=== PATIENT | female | born 1990 | race African-American/Black ===

== ENCOUNTER 2018-09-15 08:40 | Inpatient (IN) | payer MEDICAID ==
[~2018-09-15] VITALS: Ht 175.3 cm; Wt 104.5 kg
[~2018-09-15 08:40] MED LIST: BACDS PO; CEPH500C2 PO; CEPH500C5 PO; ONDA8TAB6 PO
[2018-09-15] MEDS ORDERED: CefTRIAXone 2gm/D5W 50ml 50 ML IV ONE (08:55)
[2018-09-15] MEDS ORDERED: normal saline 1000ML IV soln IV ONE (08:55)
[2018-09-15] MEDS ORDERED: ondansetron/PF 4mg/2ml inj IV ONE (08:55)
[2018-09-15] MEDS ORDERED: morphine 4 MG/ML inj SYRINge IV PRN (08:55)
[2018-09-15] MEDS ORDERED: iohexol 300mg/ml 100ml inj. ONE (09:15)
[2018-09-15 09:29] LABS: BASOPHILS # (AUTO) 0.1 X10'3 (0-0.2); BASOPHILS % (AUTO) 0.4 % (0-1); EOSINOPHILS # (AUTO) 0.2 X10'3 (0-0.9); EOSINOPHILS % (AUTO) 1.3 % (0-6); HEMATOCRIT 41.8 % (35.0-45.0); HEMOGLOBIN 13.6 g/dl (12.0-16.0); LYMPHOCYTES # (AUTO) 1.3 X10'3 (1.1-4.8); LYMPHOCYTES % (AUTO) 8.5 % (21-51); MEAN CORPUSCULAR HEMOGLOBIN 28.3 PG (27.0-31.0); MEAN CORPUSCULAR HGB CONC 32.5 g/dL (33.0-36.5); MEAN CORPUSCULAR VOLUME 87.2 FL (78-98); MEAN PLATELET VOLUME 8.7 FL (7.4-10.4); MONOCYTES # (AUTO) 1.7 X10'3 (0-0.9); NEUTROPHILS # (AUTO) 11.9 X10'3 (1.8-7.7); NEUTROPHILS % (AUTO) 78.8 % (42-75); PLATELET COUNT 258 X10'3 (140-440); RED BLOOD COUNT 4.79 X10'6 (4.20-5.60); RED CELL DISTRIBUTION WIDTH 13.3 % (11.5-14.5)
[2018-09-15] MEDS ORDERED: ketorolac trometh. 30mg/ml inj. IV ONE (09:40)
[2018-09-15 09:55] LABS: ALANINE AMINOTRANSFERASE 46 U/L (12-78); ALBUMIN 3.1 G/DL (3.4-5.0); ALBUMIN/GLOBULIN RATIO 0.6 (1.1-1.5); ALKALINE PHOSPHATASE 93 IU/L (46-116); ANION GAP 11 (8-16); ASPARTATE AMINO TRANSFERASE 24 U/L (10-37); BILIRUBIN,TOTAL 0.5 MG/DL (0.1-1.0); BLOOD UREA NITROGEN 11 MG/DL (7-18); BUN/CREATININE RATIO 12.6 (6.6-38.0); CALCIUM 8.6 MG/DL (8.5-10.1); CHLORIDE 99 MMOL/L (99-107); CREATININE 0.87 MG/DL (0.40-0.90); GLUCOSE 99 MG/DL (70-104); POTASSIUM 3.1 MMOL/L (3.5-5.1); SODIUM 135 MMOL/L (135-145); TOTAL CARBON DIOXIDE 24.6 MMOL/L (24-32); TOTAL PROTEIN 7.9 G/DL (6.4-8.2); eGFR > 90 ML/MIN
[2018-09-15] MEDS ORDERED: vancomycin/NS 1 GM ADD-VANTAGE 250 ML IV ONE (10:45)
[2018-09-15] MEDS ORDERED: acetaminophen 325mg tablet PO PRN (11:20)
[2018-09-15] MEDS ORDERED: HYDROcodone/acetaminophen 5mg/325mg tablet PO PRN (11:20)
[2018-09-15] MEDS ORDERED: magnesium hydroxide 30ml (MOM) UD suspension PO PRN (11:20)
[2018-09-15] MEDS ORDERED: mag hydrox/Alum hydrox/simeth 30ml oral suspension PO PRN (11:20)
[2018-09-15] MEDS ORDERED: morphine 2 MG/ML inj. syringe IV PRN (11:20)
[2018-09-15] MEDS ORDERED: ondansetron/PF 4mg/2ml inj IV PRN (11:20)
[2018-09-15] MEDS ORDERED: NAPR-996 PO (12:33)
[2018-09-15] MEDS: normal saline 1000ml 1,000 ML IV SCH (12:42)
[2018-09-15 12:46] VITALS: BP 115/79
[2018-09-15] MEDS: clindamycin 600mg/D5W 50ml 50 ML IV SCH ×2 (13:45→20:07)
[2018-09-15] MEDS ORDERED: naproxen 500mg tablet PO PRN (14:55)
[2018-09-15 18:00] VITALS: BP 112/62
[2018-09-15] MEDS: heparin, porcine 5000 units/ml vial SQ SCH (20:07)
[2018-09-15 22:00] VITALS: BP 101/50
[2018-09-16] MEDS: clindamycin 600mg/D5W 50ml 50 ML IV SCH ×4 (02:10→19:52)
[2018-09-16] MEDS: normal saline 1000ml 1,000 ML IV SCH ×3 (02:12→17:17)
[2018-09-16 06:00] VITALS: BP 97/54
--- NOTE | 2018-09-16 06:28 | NUR ---
REPORT GIVEN TO MAGDALENO OLIVA.
[2018-09-16 06:51] LABS: BASOPHILS % (AUTO) 0.4 % (0-1); EOSINOPHILS # (AUTO) 0.1 X10'3 (0-0.9); EOSINOPHILS % (AUTO) 1.4 % (0-6); HEMATOCRIT 38.4 % (35.0-45.0); HEMOGLOBIN 12.7 g/dl (12.0-16.0); LYMPHOCYTES # (AUTO) 1.5 X10'3 (1.1-4.8); LYMPHOCYTES % (AUTO) 14.2 % (21-51); MEAN CORPUSCULAR HEMOGLOBIN 29.2 PG (27.0-31.0); MEAN CORPUSCULAR HGB CONC 33.1 g/dL (33.0-36.5); MEAN CORPUSCULAR VOLUME 88.1 FL (78-98); MEAN PLATELET VOLUME 8.5 FL (7.4-10.4); MONOCYTES # (AUTO) 1.3 X10'3 (0-0.9); MONOCYTES % (AUTO) 12.4 % (2-12); NEUTROPHILS # (AUTO) 7.7 X10'3 (1.8-7.7); NEUTROPHILS % (AUTO) 71.6 % (42-75); PLATELET COUNT 263 X10'3 (140-440); RED BLOOD COUNT 4.36 X10'6 (4.20-5.60); RED CELL DISTRIBUTION WIDTH 13.7 % (11.5-14.5); WHITE BLOOD COUNT 10.7 X10'3 (4.5-11.0)
[2018-09-16 07:02] LABS: ALBUMIN 2.8 G/DL (3.4-5.0); ANION GAP 11 (8-16); BLOOD UREA NITROGEN 8 MG/DL (7-18); BUN/CREATININE RATIO 11.9 (6.6-38.0); CALCIUM 8.5 MG/DL (8.5-10.1); CHLORIDE 104 MMOL/L (99-107); CREATININE 0.67 MG/DL (0.40-0.90); GLUCOSE 84 MG/DL (70-104); POTASSIUM 3.7 MMOL/L (3.5-5.1); SODIUM 139 MMOL/L (135-145); TOTAL CARBON DIOXIDE 24.5 MMOL/L (24-32); eGFR > 90 ML/MIN
[2018-09-16] MEDS: heparin, porcine 5000 units/ml vial SQ SCH ×2 (09:54→19:53)
[2018-09-16 10:00] VITALS: BP 115/77
--- NOTE | 2018-09-16 16:07 | NUR ---
WOUND INFECTION EDUCATION PROVIDED BY WOUND CARE 1. Patient instructed to call their primary doctor, or go the ED immediately if any of the following symptoms occur: * Increased pain in wound * Increase in drainage from the wound * Redness in the skin surrounding the wound * Warmth in the skin surrounding the wound * Bleeding from the wound * Temperature of 101 or greater 2. If any of these occur while in the hospital tell a nurse immediately. Addendum: 09/16/18 at 1608 by Deidre Miranda RN Amended: Links added.
[2018-09-16 18:49] VITALS: BP 111/66
[2018-09-16] MEDS: lactobacillus rhamnosus 10,000 MMU CELLS/CAPSULE PO SCH (19:53)
[2018-09-16 22:00] VITALS: BP 124/67
[2018-09-17] MEDS: normal saline 1000ml 1,000 ML IV SCH ×3 (02:08→19:21)
[2018-09-17] MEDS: clindamycin 600mg/D5W 50ml 50 ML IV SCH ×2 (02:08→08:26)
[2018-09-17 06:00] LABS: BASOPHILS # (AUTO) 0.1 X10'3 (0-0.2); BASOPHILS % (AUTO) 0.7 % (0-1); EOSINOPHILS # (AUTO) 0.1 X10'3 (0-0.9); EOSINOPHILS % (AUTO) 1.4 % (0-6); HEMATOCRIT 39.2 % (35.0-45.0); HEMOGLOBIN 12.8 g/dl (12.0-16.0); LYMPHOCYTES # (AUTO) 1.9 X10'3 (1.1-4.8); LYMPHOCYTES % (AUTO) 20.9 % (21-51); MEAN CORPUSCULAR HEMOGLOBIN 28.7 PG (27.0-31.0); MEAN CORPUSCULAR HGB CONC 32.7 g/dL (33.0-36.5); MEAN PLATELET VOLUME 7.9 FL (7.4-10.4); MONOCYTES # (AUTO) 1.1 X10'3 (0-0.9); NEUTROPHILS # (AUTO) 5.9 X10'3 (1.8-7.7); PLATELET COUNT 276 X10'3 (140-440); RED BLOOD COUNT 4.46 X10'6 (4.20-5.60); RED CELL DISTRIBUTION WIDTH 13.5 % (11.5-14.5)
[2018-09-17 06:38] LABS: ALBUMIN 2.8 G/DL (3.4-5.0); ANION GAP 12 (8-16); BLOOD UREA NITROGEN 7 MG/DL (7-18); BUN/CREATININE RATIO 10.9 (6.6-38.0); CHLORIDE 105 MMOL/L (99-107); CREATININE 0.64 MG/DL (0.40-0.90); GLUCOSE 97 MG/DL (70-104); POTASSIUM 4.2 MMOL/L (3.5-5.1); SODIUM 141 MMOL/L (135-145); TOTAL CARBON DIOXIDE 23.7 MMOL/L (24-32); eGFR > 90 ML/MIN
--- NOTE | 2018-09-17 06:46 | NUR ---
report given to sher Gee.
--- NOTE | 2018-09-17 06:49 | NUR ---
Patient in room [facility] 4021. I have received report from Night RN and had the opportunity to ask questions and assume patient care.
--- NOTE | 2018-09-17 06:57 | NUR ---
report given to sher Ca.
[2018-09-17] MEDS: lactobacillus rhamnosus 10,000 MMU CELLS/CAPSULE PO SCH ×2 (08:25→19:18)
[2018-09-17] MEDS: heparin, porcine 5000 units/ml vial SQ SCH ×2 (08:26→20:00)
[2018-09-17] MEDS: ceFAZolin 1GM/D5W- ADD-VANTAGE 50 ML IV SCH ×3 (09:05→23:50)
--- NOTE | 2018-09-17 09:20 | NUR ---
wound dressing changed, honey alginate, gauze medipore tape used per order
[2018-09-17 10:00] VITALS: BP 115/71
--- NOTE | 2018-09-17 11:16 | NUR ---
need urine test to rule out , patient aware this is needed before CT
--- NOTE | 2018-09-17 11:39 | NUR ---
urine sample collected, sent to lab
[2018-09-17 12:06] LABS: URINE HCG NEGATIVE (NEG)
[2018-09-17] MEDS ORDERED: iohexol 300mg/ml 100ml inj. ONE (13:58)
--- NOTE | 2018-09-17 14:05 | NUR ---
patient in the wheelchair at the bedside, headed to CT
--- NOTE | 2018-09-17 15:50 | NUR ---
Wound consult: Pt admit with cellulitis of left buttock area s/p CT that did not show any abscess formed per MD notes. Pt seen at bedside with sister present provided with written and verbal protein education. Pt refused any additional protein at this time. Pt currently on regular diet with documented 75-100% PO intake likely meeting nutrient needs. RD contact information provided. Will continue to follow. Addendum: 09/17/18 at [address] Amended: Links added.
[2018-09-17 18:00] VITALS: BP 124/84
--- NOTE | 2018-09-17 18:25 | NUR ---
Patient in room [facility]TH[facility] 4021B. I have received report from MAGDALENO Ca and had the opportunity to ask questions and assume patient care.
--- NOTE | 2018-09-17 19:50 | NUR ---
noted pt upset about not getting discharged this evening. pt expected Dr. Morse to round again and discharge her home. educated on process of tests and results - progress note stated pt to be discharged in 1-2 days pending results of ultrasound. Pt up to the shower, will change ddressing when she is out.
--- NOTE | 2018-09-17 20:24 | NUR ---
Dr. Kvng hernandez. requested to have patient get follow up CT in 1 week and have his phone number to follow up with him if needed.
[2018-09-17 22:00] VITALS: BP 111/66
[2018-09-18 06:00] VITALS: BP 106/54
[2018-09-18 06:20] LABS: ALBUMIN 2.7 G/DL (3.4-5.0); ANION GAP 11 (8-16); BLOOD UREA NITROGEN 6 MG/DL (7-18); BUN/CREATININE RATIO 9.7 (6.6-38.0); CALCIUM 8.9 MG/DL (8.5-10.1); CHLORIDE 105 MMOL/L (99-107); CREATININE 0.62 MG/DL (0.40-0.90); GLUCOSE 88 MG/DL (70-104); SODIUM 140 MMOL/L (135-145); TOTAL CARBON DIOXIDE 24.2 MMOL/L (24-32); eGFR > 90 ML/MIN
--- NOTE | 2018-09-18 06:20 | NUR ---
Problems reprioritized. Patient report given, questions answered & plan of care reviewed with Miguel Head.
[2018-09-18 07:03] LABS: BASOPHILS % (AUTO) 0.5 % (0-1); EOSINOPHILS # (AUTO) 0.1 X10'3 (0-0.9); EOSINOPHILS % (AUTO) 1.5 % (0-6); HEMATOCRIT 40.2 % (35.0-45.0); HEMOGLOBIN 13.2 g/dl (12.0-16.0); LYMPHOCYTES # (AUTO) 1.8 X10'3 (1.1-4.8); LYMPHOCYTES % (AUTO) 23.3 % (21-51); MEAN CORPUSCULAR HEMOGLOBIN 28.9 PG (27.0-31.0); MEAN CORPUSCULAR HGB CONC 32.9 g/dL (33.0-36.5); MEAN CORPUSCULAR VOLUME 87.9 FL (78-98); MONOCYTES # (AUTO) 0.7 X10'3 (0-0.9); MONOCYTES % (AUTO) 9.2 % (2-12); NEUTROPHILS % (AUTO) 65.5 % (42-75); PLATELET COUNT 305 X10'3 (140-440); RED BLOOD COUNT 4.57 X10'6 (4.20-5.60); RED CELL DISTRIBUTION WIDTH 13.4 % (11.5-14.5); WHITE BLOOD COUNT 7.6 X10'3 (4.5-11.0)
[2018-09-18 07:54] LABS: PLATELET ESTIMATE NORMAL; TOTAL CELLS COUNTED 100
[2018-09-18] MEDS: heparin, porcine 5000 units/ml vial SQ SCH (08:00)
[2018-09-18] MEDS: lactobacillus rhamnosus 10,000 MMU CELLS/CAPSULE PO SCH (08:05)
[2018-09-18] MEDS: ceFAZolin 1GM/D5W- ADD-VANTAGE 50 ML IV SCH (08:05)
[2018-09-18] MEDS: normal saline 1000ml 1,000 ML IV SCH (09:17)
[2018-09-18 10:00] VITALS: BP 117/70
--- NOTE | 2018-09-18 10:45 | NUR ---
PAGER ID: [phone] MESSAGE: Adilene [phone] re Delmi Winter, she is anxious to discharge. Can she follow up outpatient with her SHOVEL OPERATOR about the ovarian mass?
[2018-09-18] MEDS ORDERED: AMOX-422 PO (11:51)
--- NOTE | 2018-09-18 12:26 | NUR ---
WOUND INFECTION EDUCATION PROVIDED BY WOUND CARE 1. Patient instructed to call their primary doctor, or go the ED immediately if any of the following symptoms occur: * Increased pain in wound * Increase in drainage from the wound * Redness in the skin surrounding the wound * Warmth in the skin surrounding the wound * Bleeding from the wound * Temperature of 101 or greater 2. If any of these occur while in the hospital tell a nurse immediately. Addendum: 09/18/18 at 1227 by Deidre Miranda RN Amended: Links added.
--- NOTE | 2018-09-18 12:37 | NUR ---
During discharge, wound photo was taken, and I noticed that the wound was draining profusely. May have been due to the fact that she was standing that really helped it to drain. I advised the pt to wash hands before and after drsg changes and went over basic easy care of abscess.
== END 2018-09-18 12:34 | disposition home or self-care (01) | DRG 383 ==
LOC: ER 08:41 → ORTHO 4S 11:43 → CMPBEDREQ 19:48
PROVIDERS: ADMIT Family Medicine; ATTEND Family Medicine
PROC: BW2G1ZZ Computerized Tomography (CT Scan) of Pelvic Region using Low Osmolar Contrast (ICD-10-PCS; principal; 2018-09-17)
DX: L03.317 Cellulitis of buttock (principal); N83.202 Unspecified ovarian cyst, left side; R19.00 Intra-abdominal and pelvic swelling, mass and lump, unspecified site; Z87.440 Personal history of urinary (tract) infections; Z98.891 History of uterine scar from previous surgery
CPT/HCPCS: 36415; 72193; 73701; 76830; 76856; 80048; 80053; 81025; 84145; 85025; 87070; 87077; 87081; 87186; 96365; 96366; 96375; 99285; G0378; J0690; J0696; J1644; J1885; J2405; J3370; J3490; J7030; Q9967